=== PATIENT | male | born 1935 | race Caucasian/White ===

== ENCOUNTER 2024-10-03 11:30 | Outpatient (RCR) | payer MEDICARE, SELFPAY ==
--- NOTE | 2024-09-04 17:34 | HP.PTEVAL ---
Patient's Visit Information Visit Information Visit Information: MAGY MALCOLM is a 89 year old M referred to Physical Therapy by MEHRDAD Lockhart with a diagnosis of R OA shoulder, sprain.. Date of Evaluation: 09/04/24 Physical Therapist: Bruno Chavez, GILSONT, OCS, CSCS Visit Plan Frequency: 2x /Week Duration: 4-6 Weeks Plan: 2x/weeek for 3-6(start with 2) for: IE HEP: scap circles and squeezes 10x, pendulum 45 sec, supine stick flexion and er 10x all 2x/day , postural focus, avoid aggravating activities. Treat with instruction in scap strength for posture and g-h RC strength to HEP after 4 visits. Also manual therapy for grade 1-2 scap and g- h mobs/arm pull, R UT stretch and STM as needed Subjective Subjective: R shoulder has been bothering him for a long time and is worn out. Step ladder feel with him a week and a half ago and it has hurt worse since. The next day he weed eated alot and it really hurt. Shoulder is worn out and may need TSA. Trying therapy and did x rays which showed degeneration . Also naproxen as needed. It is now baseline as prior to the fall. Pain on daily basis is up to 4/10 intermittently. Needed rev TSA 4 yrs ago. Hurts more lying down at night top of arm up to 4/10. Comfortabl at rest. Basic ADLs dressing can hurt, putting on shirt. Doing all basic ADLs. 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 Light maintenance. No regular ex. Pain R shoulder: Pain Intensity (Out of 10): 0 Pain Intensity Range: 4 Comment: worsee lying Objective Objective: Forward head protracted scap posture adn down rotated Fw with head tilt R and tightness R UT and scalenes. Tender to palpation over R supraspinatus and biceps and anteerior joint line. AROM B shoulder 130 flexion stiff but no pain, 40 er B pain end range R, IR no pain. elbow and wrist AROM symmeetrical and WFL reflexes 2/3 bi and tri B. sensation UE WNL to gross light touch B UE. strength is 3+ R er adn 4- L with pain, IR 4- B slight pain R. flexion 4-, empty can 3+ painful R, 4- L, bi and tir 4+ no pain, wrist flexion/ext 4+ no pain. + R shoulder scour, slight + R HK and neer, - sulcus, - apprehension, - ext rotation lag and drop arm tests. Scapula are vry stiff in the depression and retraction motions R>L Balance/Special Test Scores Quick DASH Score: 13.6350 Goals Goal 1:: Sleep without waking due to shouldr pain 1 week Goal Time Frame: 4-6 Weeks Goal 2:: AROM R shoulder symmetrical and without pain Goal Time Frame: 4-6 Weeks Goal 3:: I appropriate HEP to limit future problems/prepare for surgery Goal Time Frame: 4-6 Weeks Goal 4:: quickdash score 15 or better Goal Time Frame: 4-6 Weeks Goal 5:: Put on shirt without pain Goal Time Frame: 4-6 Weeks Rehabilitation Potential Physical Therapy Diagnosis: Stiffness, weakness R scap and shoulder with pain. Rehabilitation Potential: Good Anticipated Interventions Patient/Client Instruction: Educate patient on: Condition and Plan of Care For the Purpose of:: To decrease pain, To increase ROM, To improve nutrient delivery to tissue, To improve muscle performance and motor function and To increase tolerance to activity/condition/position Therapeutic Exercise to Include: Strength training, Postural training, Flexibilty training, Passive ROM and Active ROM For the Purpose of:: To increase ROM, To improve nutrient delivery to tissue, To improve muscle performance and motor function, To increase tolerance to activity/condition/position and To improve ability of physical actions for home/community/work/leisure Manual Therapy Techniques to Include: Mobilization, Passive ROM and Soft tissue mobilization For the Purpose of:: To decrease pain, To increase ROM, To improve nutrient delivery to tissue and To improve muscle performance and motor function Text: Thank you for the opportunity to evaluate your patient. For Medicare and Medicare HMO plans, please review the plan of care and approve it. It will need to be FAXED BACK to us at [phone] for Medicare purposes. For Medicare only, by signing this I certify the plan of care. Please let me know if there are questions or concerns regarding this plan of care. Physician Signature: Date:
--- NOTE | 2024-10-03 12:12 | HP.PTDCSUM ---
Discharge Summary D/C summary: It has been my pleasure to treat MAGY MALCOLM referred by MEHRDAD Lockhart, with the diagnosis of R OA shoulder, sprain. for a total of 9 visit(s). Discharge Date: 10/03/24 Please see the following information for a summary of their discharge status. Subjective Subjective: Getting better slowly. Still has shoulder pain. Strength is improving. Pain with movements and snapping is still present. Doing exercises at home adn will continue. Pain this week is worst after lying for 3-4 hrs and 9/10 until he moves it. Wakes up 2x/night. Activities are about the same as a month ago. Sees doctor later int he month. Not sure what other options are. Wants to continue via HEP and will f/u with doctor in a couple weeks. Pain R shoulder: Pain Intensity (Out of 10): 1 Overall Improvement % Improvement: 15 Objective Objective/Function: 125 flexion with some pain, reaching behind is painful. er is good. strength 4-/5 L and same with some pain on the right in flexion and er, IR. Goals Goal 1:: Sleep without waking due to shouldr pain 1 week Goal Progress: Not Progressing Goal 2:: AROM R shoulder symmetrical and without pain Goal 3:: I appropriate HEP to limit future problems/prepare for surgery Goal Progress: Goal Met Goal 4:: quickdash score 15 or better Goal Progress: Goal Met Goal 5:: Put on shirt without pain Goal Progress: Not Progressing Plan Plan: Not a huge amount of improvement but will continue via HEP and f/u with doctor in a couple weeks. D/C Information d/c sentence: If there are questions or concerns regarding this patient's physical therapy, please feel free to call me at [phone]. Thank you for the referral of this patient. Sincerely, Bruno Chavez, DPT, OCS, CSCS Balance/Gait/Functional tests Balance/Special Test Scores Quick DASH Score: 25.0000 Improvement % Improvement: 15
== END 2024-10-03 12:45 | disposition home or self-care (01) ==
LOC: PT 11:30
PROVIDERS: PCP Internal Medicine; Referring Provider Physician Assistant Surgical; Visit Provider Physician Assistant Surgical
DX: M19.011 Primary osteoarthritis, right shoulder (principal); S43.121D Dislocation of right acromioclavicular joint, 100%-200% displacement, subsequent encounter; S43.491D Other sprain of right shoulder joint, subsequent encounter
CPT/HCPCS: 97110; 97140; 97161; 97164